=== PATIENT | male | born 1965 | race Caucasian/White ===

== ENCOUNTER 2017-06-16 08:42 | Emergency (ER) | payer BC ==
[2017-06-16 08:51] VITALS: BP 113/75; BMI 21.2
[2017-06-16] MEDS ORDERED: ASPIRIN PO ONE (09:26)
[2017-06-16] MEDS ORDERED: NS 1000 ML 1,000 ML ONE (09:36)
--- NOTE | 2017-06-16 09:36 | DR.GENAD ---
HPI - PCP Primary Care Physician: NFD - Complaint/Symptoms Chief Complaint Doctors Comments: Patient states he got dizzy at work and slide down on his right side because he knew he was going to pass out. States he fell to the floor and felt hot, dizzy with problems with his balance. He denies LOC states he knew what was going on the whole time he just had problems with his balance and went down on his right side. He did not hit his head and he denies SOB but did get nauseated but did not vomit. He denies chest pain, cold, cough or stomach pain. Stopped smoking about 15 years ago but still have about three beers daily and has used marijuania in the past but none recently. States he has a strong family history of heart disease, diabetes, and high blood pressure. He has a lesion on his nose for about a year and states he had it biopsied in [place] years ago but did not go back for results but think they said it may be skin cancer. States he has not gone to a doctor in years because he had no reason to go to the doctor. HIs appetite is good and he has not had any weight loss. Self Treatment fo Chief Complaint: Just got dizzy at work and fell down - Nurses notes reviewed Nurses Notes Review: Yes - Source History Provided: Patient - Mode of Arrival Mode of Arrival: Ambulatory - Timing Onset of Chief Complaint: 06/16/17 Came on: Suddenly - Duration Duration: Unknown How lon Duration: Hours - Location Location: dizziness - Severity Severity: Moderate - Modifying Factors Worsens:: nothing Improves:: nothing PMH - PMH Past Medical History: No Past Surgical History: No - Family History History of Family Medical Conditions: Yes Family Medical History: Diabetes Mellitus, Cancer, Coronary Artery Disease, Hypertension - Social History Does patient currently use any type of tobacco product: No Have you used tobacco products in the last 12 months: No Type of Tobacco Use: None How many years tobacco product used: 24 Alcohol Use: DAILY Lives With: Friend Lives Where: Home - infectious screening In the last 2 months have you had wt loss of >10#?: NO Have you had fever, night sweats or hemotysis?: No Have you traveled outside the country in the last 6 months?: No Isolation: Standard ROS - Review of Systems Constitutional: No Symptoms Reported. negative: See HPI, Chills, Diaphoresis, Fever, Malaise, Weakness, Irritable, Fatigue, Loss of Appetite, Other Eyes: No Symptoms Reported. negative: See HPI, Eye Pain, Blurred Vision, Tearing, Discharge, Photophobia, Diplopia, Other ENTM: No Symptoms Reported. negative: See HPI, Ear Pain, Ear Discharge, Pulling on Ears, Hearing Loss, Nose Pain, Nose Discharge, Epistaxis, Nose Congestion, Mouth Pain, Mouth Swelling, Loose Teeth, Drooling, Throat Pain, Throat Swelling, Ear Foreign Body Respiratoy: No Symptoms Reported. negative: See HPI, Productive Cough, Non- Productive Cough, Moist Cough, Dry Cough, Hacking Cough, Barking Cough, Brassy Cough, Orthopnea, Short of Breath, Stridor, Wheezing, Hemoptysis, Other Cardiovascular: No Symptoms Reported, Syncope. negative: See HPI, Chest Pain, Edema, Palpitations, Cyanosis, Skin Mottling, Other Gastrointestinal/Abdominal: No Symptoms Reported, Nausea. negative: See HPI, Abdominal Pain, Constipation, Diarrhea, Vomiting, Food Intolerance, Other Genitourinary: No Symptoms Reported. negative: See HPI, Discharge, Dysuria, Frequency, Hematuria, Pain, Bleeding, Other Neurological: No Symptoms Reported. negative: See HPI, Anxiety, Depressed, Emotional Problems, Headache, Numbness, Paresthesia, Pre-existing Deficit, Seizure, Tingling, Tremors, Weakness, Dizziness, Problems Walking, Speech Problem, Other Musculoskeletal: No Symptoms Reported Integumentary: No Symptoms Reported, Lesions (right nasal lesion for over a year ). negative: See HPI, Change in Color, Change in Hair/Nails, Dryness, Lumps, Rash, Itching, Wound, Bruises, Juandice, Other Hematologic/Lymphatic: No Symptoms Reported Endocrine: No Symptoms Reported Psychiatric: No Symptoms Reported. negative: See HPI, Anxiety, Depression, Hallucinations, Excessive crying, Suicidal, Other PE - Vital Signs Vitals: Pulse Rate 49 Respiratory Rate 20 Blood Pressure 113/75 - General Limitations: No Limitations General Appearance: Alert, In No Apparent Distress - Head Head Exam: Normal Inspection, Normocephalic. negative: Atraumatic (abrasion right parietal scalp 1- 2 cm superficial lesion) - Eyes Eye exam: Normal Appearance, PERRL, EOMI. negative: Scleral Icterus, Conjunctival Injection, Nystagmus, Miosis, Mydrasis, Periorbital Swelling, Periorbital Tenderness, Other - ENT ENT Exam: Normal Exam, Normal Oropharynx, Normal External Ear Exam, Mucous Membranes Moist, TM's Normal Bilaterally (dental caries) External Ear Exam: Normal External Inspection TM/Canal Exam: Bilateral Normal Nose Exam: negative: Normal Nose Exam (right nares with necrotic ulcerating lesion 3 cm tip on nose and right nostril; dry; no discharge) Mouth Exam: Normal Inspection. negative: Drooling, Trismus, Lip Swelling, Tongue Elevation, Tongue Swelling, Laceration, Other Throat Exam: Normal Inspection - Neck Neck Exam: Normal Inspection, Full ROM, Trachea Midline - Chest Chest Inspection: Normal Inspection, Symmetric Chest Wall Rise - Respiratory Respiratory Exam: Normal Lung Sounds Bilat Respiratory Exam: Bilateral Clear to Auscultation - Cardiovascular Cardiovascular Exam: Regular Rate, Bradycardia, Irregular Rhythm, Normal Heart Sounds, Systolic Murmur - Abdominal Exam Abdominal Exam: Normal Inspection, Normal Bowel Sounds, Soft. negative: Distention, Tenderness, Guarding, Rebound, Rigidity, Dimnished Bowel Sounds, Hyperactive Bowel Sounds, Hypoactive Bowel Sounds, Organomegaly, Trauma, Incision, Ascites, Mass, Bruit, Pulsatile Mass, Hernia, Other Abdominal Tenderness: negative: RUQ, RLQ, LUQ, LLQ, Epigastrium, Suprapubic, Diffuse, Mild, Moderate, Severe, Other - Extremities Extremities Exam: Normal Inspection, Full ROM, Normal Capillary Refill. negative: Tenderness, Edema, Joint Swelling, Calf Tenderness, Other - Back Back Exam: Normal Inspection, Full ROM. negative: Tenderness, (R) CVA Tenderness, (L) CVA Tenderness, Muscle Spasm, Paraspinal Tenderness, Vertebral Tenderness, Rashes, (R) Sciatic Notch Tenderness, (L) Sciatic Notch Tendern, (R ) Straight Leg Raise, (L) Straight Leg Raise, Other - Neurologic Neurological Exam: Alert, Oriented X3, CN II-XII Intact, Reflexes Normal. negative: Normal Gait (gait not tested) - Psychiatric Psychiatric Exam: Normal Affect, Normal Mood. negative: Depressed, Agitated, Anxious, Flat Affect, Manic, Homicidal Ideation, Suicidal Ideation, Other - Skin Skin Exam: Warm, Dry, Intact, Normal Color. negative: Rash (right nostril with lesion; superficial ulceration with dry base; no bleeding) ROR - Labs Reviewed Laboratory Results Reviewed?: Yes (all labs and x-ray results reviewed and discussed with patient.) Result Diagrams: 06/16/17 09:40 06/16/17 09:40 Laboratory: WBC 6.8 X10^3/uL (3.6-10.0) 06/16/17 09:40 RBC 4.59 X10^6/uL (4.7-6.0) L 06/16/17 09:40 Hgb 14.8 g/dL (13.5-18.0) 06/16/17 09:40 Hct 42.1 % (42.0-54.0) 06/16/17 09:40 MCV 91.6 fL (80.0-100.0) 06/16/17 09:40 MCH 32.3 pg (27.0-34.0) 06/16/17 09:40 MCHC 35.2 g/dL (33.0-35.0) H 06/16/17 09:40 RDW 14.1 % (11.6-16.5) 06/16/17 09:40 Plt Count 329 X10^3/uL (150.0-450.0) 06/16/17 09:40 MPV 7.0 fL (7.4-11.0) L 06/16/17 09:40 Neut % 70.2 % (42.0-75.0) 06/16/17 09:40 Lymph % 18.5 % (21.0-51.0) L 06/16/17 09:40 [place] % 7.0 % (0.0-13.0) 06/16/17 09:40 Eos % 3.4 % (0.9-2.9) H 06/16/17 09:40 Baso % 0.9 % (0.2-1.0) 06/16/17 09:40 Neut # 4.8 x10^3/uL (2.2-4.8) 06/16/17 09:40 Lymph # 1.3 X10^3/uL (1.3-2.9) 06/16/17 09:40 [place] # 0.5 x10^3/uL (0.3-0.8) 06/16/17 09:40 Eos # 0.2 x10^3/uL (0.0-0.2) 06/16/17 09:40 Baso # 0.1 X10^3/uL (0.0-0.1) 06/16/17 09:40 Absolute Nucleated RBC 0.0 /100WBC 06/16/17 09:40 INR Target Range - 06/16/17 09:40 INR 0.93 (0.8-1.3) 06/16/17 09:40 PTT 27.6 SECONDS (22.9-36.5) 06/16/17 09:40 PTT Comment - 06/16/17 09:40 D-Dimer < 100 ng/mL (0-400) 06/16/17 09:40 Sodium 131 mmol/L (136-145) L 06/16/17 09:40 Corrected Sodium 131 mmol/L (136-145) L 06/16/17 09:40 Potassium 3.5 mmol/L (3.5-5.1) 06/16/17 09:40 Chloride 97 mmol/L (98-107) L 06/16/17 09:40 Carbon Dioxide 28.3 mmol/L (21-32) 06/16/17 09:40 BUN 9 mg/dL (7-18) 06/16/17 09:40 Creatinine 0.79 mg/dL (0.70-1.30) 06/16/17 09:40 Est GFR (MDRD) Af Amer > 60 (>60) 06/16/17 09:40 Est GFR (MDRD) Non-Af > 60 (>60) 06/16/17 09:40 Glucose 120 mg/dL (65-99) H 06/16/17 09:40 Calcium 8.3 mg/dL (8.5-10.1) L 06/16/17 09:40 Corrected Calcium TNP 06/16/17 09:40 Magnesium 2.0 mg/dL (1.7-2.9) 06/16/17 09:40 Total Bilirubin 0.40 mg/dL (0.2-1.0) 06/16/17 09:40 AST 22 Units/L (15-37) 06/16/17 09:40 ALT 27 Units/L (12-78) 06/16/17 09:40 Alkaline Phosphatase 85 Units/L (46-116) 06/16/17 09:40 Creatine Kinase 199 Units/L (39-308) 06/16/17 09:40 CK-MB (CK-2) 2.1 ng/mL (0-4.0) 06/16/17 09:40 CK/CKMB % Calc 1.1 % (<4) 06/16/17 09:40 Troponin I < 0.02 ng/mL (0-1.5) 06/16/17 09:40 Total Protein 7.9 g/dL (6.4-8.2) 06/16/17 09:40 Albumin 3.9 g/dL (3.4-5.0) 06/16/17 09:40 Globulin 4.0 g/dL (2.5-4.5) 06/16/17 09:40 Albumin/Globulin Ratio 1.0 Ratio (1.1-2.1) L 06/16/17 09:40 TSH 3rd Generation 0.890 uIU/mL (0.358-3.74) 06/16/17 09:40 Specimen Type Clean catch urine 06/16/17 11:02 Urine Color Yellow (YELLOW) 06/16/17 11:02 Urine Appearance Clear (CLEAR) 06/16/17 11:02 Urine pH 8.0 (5.0 - 8.0) 06/16/17 11:02 Ur Specific [place] 1.010 (1.000-1.030) 06/16/17 11:02 Urine Protein Negative (NEGATIVE) 06/16/17 11:02 Urine Glucose (UA) Negative (NEGATIVE) 06/16/17 11:02 Urine Ketones Negative (NEGATIVE) 06/16/17 11:02 Urine Occult Blood 1+ (NEGATIVE) 06/16/17 11:02 Urine Nitrite Negative (NEGATIVE) 06/16/17 11:02 Urine Bilirubin Negative (NEGATIVE) 06/16/17 11:02 Urine Urobilinogen Normal (NORMAL) 06/16/17 11:02 Ur Leukocyte Esterase Negative (NEGATIVE) 06/16/17 11:02 Urine RBC 0-2 /HPF (NEGATIVE) 06/16/17 11:02 Urine WBC 0-2 /HPF (NEGATIVE) 06/16/17 11:02 Ur Squamous Epith Cells Negative /HPF (NEGATIVE) 06/16/17 11:02 Urine Bacteria Trace /HPF (NEGATIVE) 06/16/17 11:02 Ur Culture Indicated? No/not indicated 06/16/17 11:02 Urine Opiates Screen Negative (NEG=<300) 06/16/17 11:02 Urine Methadone Screen Negative (NEG=<300) 06/16/17 11:02 Ur Barbiturates Screen Negative (NEG=<200) 06/16/17 11:02 Ur Phencyclidine Scrn Negative (NEG=<25) 06/16/17 11:02 Ur Amphetamines Screen Negative (NEG=<1000) 06/16/17 11:02 U Benzodiazepines Scrn Negative (NEG=<200) 06/16/17 11:02 Urine Cocaine Screen Negative (NEG=<300) 06/16/17 11:02 U Marijuana (THC) Screen Positive (NEG=<50) A 06/16/17 11:02 Ethyl Alcohol mg/dL < 3 mg/dL (0-19.9) 06/16/17 09:40 - XRAY XRAY Interpreted by: Radiologist (CT brain: No acute intracranial process can be identified) XRAY Findings: CXR:d No acute cardiopulmonary disease - EKG Rate: 49 [place]: Normal Rhythm: NSR, SB Block: None Hypertrophy: None ST: Nonsp (early repolarization noted.) - Diagnosis Discharge Problem: Dizziness, Sinus bradycardia, Near syncope, Orthostatic dizziness, Hyponatremia , Lesion of nose, Hyperglycemia - Discharge Plan Disposition: 01 HOME, SELF-CARE Condition: Stable - Follow ups/Referrals Follow ups/Referrals: NFD,None [Primary Care Provider] - 3 days [facility] PEDERSON [STAFF PHYSICIAN] - 3 days - Instructions Instructions: Rehydration, Adult, Near-Syncope, [id number], Dizziness, Easy- to-Read, Hyperglycemia, Bradycardia
[2017-06-16] MEDS ORDERED: ASPIRIN ONE (09:51)
[2017-06-16 09:55] LABS: BASOPHILS # (AUTO) 0.1 X10^3/uL (0.0-0.1); BASOPHILS % (AUTO) 0.9 % (0.2-1.0); EOSINOPHILS # (AUTO) 0.2 x10^3/uL (0.0-0.2); EOSINOPHILS % (AUTO) 3.4 % (0.9-2.9); HEMATOCRIT 42.1 % (42.0-54.0); HEMOGLOBIN 14.8 g/dL (13.5-18.0); LYMPHOCYTES # (AUTO) 1.3 X10^3/uL (1.3-2.9); LYMPHOCYTES % (AUTO) 18.5 % (21.0-51.0); MEAN CORPUSCULAR HEMOGLOBIN 32.3 pg (27.0-34.0); MEAN CORPUSCULAR HGB CONC 35.2 g/dL (33.0-35.0); MEAN CORPUSCULAR VOLUME 91.6 fL (80.0-100.0); MONOCYTES # (AUTO) 0.5 x10^3/uL (0.3-0.8); NEUTROPHILS # (AUTO) 4.8 x10^3/uL (2.2-4.8); NEUTROPHILS % (AUTO) 70.2 % (42.0-75.0); PLATELET COUNT 329 X10^3/uL (150.0-450.0); RED BLOOD COUNT 4.59 X10^6/uL (4.7-6.0); RED CELL DISTRIBUTION WIDTH 14.1 % (11.6-16.5); WHITE BLOOD COUNT 6.8 X10^3/uL (3.6-10.0)
[2017-06-16] MEDS ORDERED: NS 1000 ML 1,000 ML IV SCH (10:00)
[2017-06-16 10:08] LABS: BLOOD UREA NITROGEN 9 mg/dL (7-18); CALCIUM 8.3 mg/dL (8.5-10.1); CARBON DIOXIDE 28.3 mmol/L (21-32); CHLORIDE 97 mmol/L (98-107); COR NA(FOR HYPERGLY) 131 mmol/L (136-145); CREATININE 0.79 mg/dL (0.70-1.30); GLUCOSE 120 mg/dL (65-99); SODIUM 131 mmol/L (136-145); TROPONIN I < 0.02 ng/mL (0-1.5); eGFR BLACK RACES > 60 (>60); eGFR NON BLACK RACES > 60 (>60)
[2017-06-16 10:12] LABS: ALANINE AMINOTRANSFERASE 27 Units/L (12-78); ALKALINE PHOSPHATASE 85 Units/L (46-116); ASPARTATE AMINO TRANSFERASE 22 Units/L (15-37); CKMB % 1.1 % (<4); CREATINE KINASE 199 Units/L (39-308); CREATINE KINASE MB 2.1 ng/mL (0-4.0); TOTAL PROTEIN 7.9 g/dL (6.4-8.2)
[2017-06-16 10:17] LABS: D DIMER < 100 ng/mL (0-400)
[2017-06-16 10:44] LABS: ALBUMIN 3.9 g/dL (3.4-5.0)
--- NOTE | 2017-06-16 10:49 | RAD ---
HISTORY: Dizzy. Study: Portable chest. Comparison: None. Findings: The trachea is midline. The cardiac silhouette is unremarkable. The lungs are clear without focal infiltrate or effusion. The bony thorax is unremarkable. IMPRESSION: 1. No acute cardiopulmonary disease. Reported By:
--- NOTE | 2017-06-16 11:01 | CT ---
HISTORY: Dizzy. Study: CT brain without contrast Comparison: None. Technique: Multiple axial images of the brain were obtained from the skull base to the vertex without administr ation of IV contrast. Dose reduction techniques including Automated Exposure Control (AEC) and adju stment of mA and kV were utilized. Findings: No acute intraparenchymal hemorrhage or mass can be identified. No extra-axial fluid collections ar e seen. No alteration in the attenuation of the brain parenchyma can be identified to suggest acute or subacute ischemic change. The ventricular system is symmetric and nondilated. The extracranial structures are grossly unremarkable. IMPRESSION: 1. No acute intracranial process can be identified. Reported By:
[2017-06-16 11:15] LABS: BILIRUBIN,URINE NEGATIVE (NEGATIVE); BLOOD/HEMOGLOBIN,URINE 1+ (NEGATIVE); GLUCOSE, URINE NEGATIVE (NEGATIVE); KETONES,URINE NEGATIVE (NEGATIVE); LEUKOCYTE ESTERASE ,URINE NEGATIVE (NEGATIVE); NITRITES,URINE NEGATIVE (NEGATIVE); PROTEIN,URINE NEGATIVE (NEGATIVE); UROBILINOGEN,URINE NORMAL (NORMAL)
[2017-06-16 11:31] LABS: APPEARANCE,URINE CLEAR (CLEAR); BACTERIA,URINE TRACE /HPF (NEGATIVE); COLOR,URINE YELLOW (YELLOW); RBC,URINE 0-2 /HPF (NEGATIVE); SQUAMOUS EPITHELIAL CELL,UR NEGATIVE /HPF (NEGATIVE)
== END 2017-06-16 12:40 | disposition home or self-care (01) ==
LOC: ER 09:10 → EDBD 09:10 → ER 12:40
DX: R00.1 Bradycardia, unspecified (principal); R55 Syncope and collapse; E87.1 Hypo-osmolality and hyponatremia; J34.89 Other specified disorders of nose and nasal sinuses; R73.9 Hyperglycemia, unspecified
CPT/HCPCS: 36415; 70450; 71010; 80053; 80307; 80320; 81001; 82550; 82553; 83735; 84443; 84484; 85025; 85378; 85610; 85730; 93005; 93010; 96365; 96367; 99283; A4222; G0434; G6040